=== PATIENT | female | born 1980 | race Two or more races ===

== ENCOUNTER → 2022-11-23 | Outpatient (REF) | payer BC ==
[2022-11-23 17:43] LABS: PERCENT SATURATION 39.1 % (13.2-45.0)
[2022-11-23 17:46] LABS: FERRITIN 14.9 NG/ML (7.3-270.7)
== END ==
LOC: M LAB REF 16:15
PROVIDERS: ATTEND Internal Medicine
DX: E61.1 Iron deficiency (principal)

== ENCOUNTER → 2023-08-26 | Outpatient (CLI) | payer BC ==
[~2023-08-26] MED LIST: GASTROGRAFIN SOLUTION 30ML As Ordered ONE; ISOVUE-370 76% 100ML VIAL As Ordered ONE
== END ==
LOC: M RAD 12:16
PROVIDERS: ATTEND Nurse Practitioner Family
DX: K52.89 Other specified noninfective gastroenteritis and colitis (principal); R10.9 Unspecified abdominal pain
CPT/HCPCS: 74177; 83690; Q9963; Q9967

== ENCOUNTER → 2023-12-06 | Outpatient (REF) | payer BC | LOC: M LAB REF 12:25 | PROVIDERS: ATTEND Internal Medicine | DX: R10.9 Unspecified abdominal pain (principal); N39.0 Urinary tract infection, site not specified ==

== ENCOUNTER → 2024-08-03 | Outpatient (REF) | payer BC ==
[2024-08-03 18:34] LABS: FOLLICLE STIMULATING HORMONE 4.1 mIU/ML; LUTEINIZING HORMONE 9.9 mIU/ML
== END ==
LOC: M LAB REF 16:20
PROVIDERS: ATTEND Nurse Practitioner Adult Health
DX: Z01.419 Encounter for gynecological examination (general) (routine) without abnormal findings (principal); N95.1 Menopausal and female climacteric states

== ENCOUNTER → 2024-08-24 | Outpatient (CLI) | payer BC | LOC: M RAD 12:53 | PROVIDERS: ATTEND Nurse Practitioner Adult Health | DX: N97.9 Female infertility, unspecified (principal); N85.8 Other specified noninflammatory disorders of uterus ==

== ENCOUNTER → 2024-11-03 | Outpatient (CLI) | payer OTHER | LOC: M SLEEP 20:00 | PROVIDERS: ATTEND Family Medicine | DX: R06.83 Snoring (principal); G47.8 Other sleep disorders ==